=== PATIENT | male | born 1995 | race Caucasian/White ===

== ENCOUNTER 2025-07-21 20:04 | Emergency (ER) | payer OTHER ==
[~2025-07-21] VITALS: Ht 177.8 cm; Wt 79.5 kg
[2025-07-21 20:11] VITALS: BP 127/76; PULSE 56; RESP 16; O2SAT 99
[2025-07-21] MEDS: TETanus/Pertussis (Acell)/Diphther VAC/PF (Tdap-Adult) 0.5ml syringe IMVAC ONE (20:19)
[2025-07-21 20:21] VITALS: TEMP 97
--- NOTE | 2025-07-23 19:08 | Physician Documentation ---
History of Present Illness ~ Chief Complaint: Laceration Stated Complaint: WORK COMP Time Seen by MD: 20:14 HPI Ventura presented to the emergency department for evaluation of small laceration obtained while at work today. The patient reports that he cut is hand on a barbed wire fence. He reports that he is not up to date on his tetanus at this time. Medication Reconciliation Allergies: Coded Allergies: hydrocodone (Verified Allergy, Unknown, TACHYCARDI, 07/21/25) Past Medical History Smoking Status: Never smoker Review of Systems ROS As stated above in the HPI, otherwise all systems are reviewed and negative. Physical Exam Vital Signs: Temperature: 97.0, Heart Rate: 56, Respiratory Rate: 16, BP: 127/76, Pulse Oximetry: 99, Weight: 79.540 Oxygen Flow Rate: 0 Physical Exam VITALS: Reviewed and as above. GENERAL: Alert, no apparent distress. HEENT: Normocephalic, atraumatic, PERRL, EOMI, dry mucosa, no erythema RESPIRATORY: Lungs clear, normal breath sounds, no respiratory distress. CHEST: No accessory muscle use, no retractions CV: Regular rate, rhythm, no edema, no murmur, No: JVD GI: Soft, non-tender, bowels sounds present, no rebound, guarding, or rigidity BACK: No CVA tenderness, or swelling MUSCULOSKELETAL No deformities, no edema SKIN: Warm and dry, no rash, small laceration to hand and first and second d igits. 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 Patient was administered a tetanus and discharged with follow up education and return precautions. Differential Dx:Considerations: Include: Abrasion, Avulsion, Contusion, Laceration, Fracture, Hematoma, Neurovascular injury, Retained foreign body, Other Departure Disposition: 01 HOME / SELF CARE / HOMELESS Impression: Primary Impression: Laceration Additional Impression: Tetanus-diphtheria vaccination administered at current visit Discharge Instructions: Laceration Care, Adult, [id number] Additional Instructions: Patient evalauted and determined that a laceration repair is not required. Patient was administered a tetanus and discharged with follow up education and return precautions. Referrals: NO PRIMARY CARE PROVIDER (PCP) Education Educated: Patient Educated regarding: diagnosis, treatment, need for follow up Signature Scribe Signature: A Attestation: Scribed for Kaylee Fuentes by SHELBI Leonard . 07/23/25 19:35 KAYLEE FUENTES Jul 23, 2025 19:08
== END 2025-07-21 20:23 | disposition home or self-care (01) ==
LOC: ER 20:06
DX: S61.218A Laceration without foreign body of other finger without damage to nail, initial encounter (principal); Z23 Encounter for immunization; Z88.5 Allergy status to narcotic agent; W26.8XXA Contact with other sharp object(s), not elsewhere classified, initial encounter; Y93.89 Activity, other specified; Y92.89 Other specified places as the place of occurrence of the external cause; Y99.8 Other external cause status
CPT/HCPCS: 90471; 90715; 99281; 99283